=== PATIENT | female | born 1985 | race Caucasian/White ===

== ENCOUNTER 2016-08-15 09:37 | Emergency (ER) | payer SELFPAY ==
[~2016-08-15] VITALS: Ht 172.7 cm; Wt 54.3 kg
[2016-08-15 09:39] VITALS: Ht 172.7 cm; Wt 54.3 kg
--- OUTSIDE RECORDS SUMMARY | 2016-08-15 09:41 | XMS REPORT | Continuity of Care Document ---
Author Author [facility] Organization [facility] Address Unknown Phone Unavailable Allergies Medications Problems Procedures Results Encounters ACCT No. Visit Date/Time Discharge Status Pt. Type Provider Facility Loc./Unit Complaint [id number] 01/27/2012 09:11:00 2011 09:11:00 DIS Outpatient Carrol URIAS, Andrez Baker [facility]
--- OUTSIDE RECORDS SUMMARY | 2016-08-15 10:05 | XMS REPORT | Continuity of Care Document ---
Author Author [facility] Organization [facility] Address Unknown Phone Unavailable Allergies Medications Problems Procedures Results Encounters ACCT No. Visit Date/Time Discharge Status Pt. Type Provider Facility Loc./Unit Complaint [id number] 01/27/2012 09:11:00 2011 09:11:00 DIS Outpatient Carrol URIAS, Andrez Baker [facility]
[2016-08-15] MEDS ORDERED: MAGN30OR PO (10:07)
[2016-08-15] MEDS ORDERED: ACTI200C PO (10:08)
[2016-08-15] MEDS ORDERED: SALI45SP SSP (10:09)
--- NOTE | 2016-08-15 10:38 | ERPDOC ---
Departure Disposition Decision Date: Aug 15, 2016 Disposition Decision Time: 11:28 Disposition: 01 DISCHARGED HOME, SELF-CARE Impression Impression Impression: Primary Impression: GERD (gastroesophageal reflux disease) Esophagitis presence: esophagitis presence not specified Qualified Codes: K21.9 - Gastro-esophageal reflux disease without esophagitis Severity: Mild Condition: Improved Seen By: Physician only Referrals: [facility] 2 Days Patient Instructions: Peptic Ulcer (ED) Problems/Meds/Labs Reviewed?: Yes Medications reviewed and manag: Yes Follow up care ordered?: Yes Mental Status: Alert, Oriented Scripts Ondansetron (Zofran Odt) 4 Mg Tab.rapdis 4 MG PO Q4HR Y for NAUSEA &/OR VOMITING for 3 Days, #18 TAB 0 Refills Prov: CHARLIE WELLINGTON DO 08/15/16 Famotidine (Pepcid) 20 Mg Tablet 1 TAB PO BID for 10 Days, #20 TAB 0 Refills Prov: CHARLIE WELLINGTON DO 08/15/16 HPI - General Medical General Chief Complaint: Abdominal Pain Stated Complaint: ABD PAIN Time Seen by Provider: 09:50 Source: patient Exam Limitations: no limitations HPI - General Medical Initial Comments 30-year-old female presents to the emergency department with a chief complaint of abdominal discomfort. Patient's discomfort is located diffusely throughout the upper abdomen. She denies any trauma, travel, poorly prepared food, or recent antibiotic use. Patient states she has had chronic abdominal discomfort that has been similar in nature for several years. Patient states that the pain feels like it has exacerbated over the past week. She was at home when her symptoms began. Symptoms have been persistent in nature since onset. Patient does not note anything that makes her symptoms any better or any worse. She also notes a feeling like her pain is burning. Pain is moderate. No radiation. Patient also has a sour ball taste in her mouth like she is refluxing acid which she has done in the past. Occurred At: home Onset: Gradual Allergies: Coded Allergies: No Known Allergies (Unverified , 08/15/16) Past History Past Medical History Pt denies signifigant PMH Surgical History Denies Surgeries Family History Family History: Negative Social History Smoking Status: Current every day smoker Substance Use Type: does not use Alcohol Intake: former alcohol drinker Review of Systems Constitutional Constitutional: DENIES: chills, fever Eyes General: DENIES: erythema, exudate Lids/Accessories: DENIES: erythema, swelling Vision: DENIES: acuity, blurring ENMT Ears: DENIES: drainage, erythema, pain Hearing: DENIES: hearing loss Balance: DENIES: ataxia, falling to one side Sinuses: DENIES: congestion, pain Nose: DENIES: nosebleeds, pain Mouth/Throat: DENIES: painful swallowing, sore throat Teeth: DENIES: pain Jaw: DENIES: pain Cardiovascular Cardiac: DENIES: chest pain, dyspnea on exertion Rhythm/Rate: DENIES: irregular beat, palpitations Vascular: DENIES: pedal edema, unilateral swelling Pulmonary Respiratory: DENIES: cough, dyspnea, pleuritic chest pain, sputum GI Upper Abdomen: nausea, pain, vomiting Lower Abdomen: DENIES: diarrhea, pain General: DENIES: dysuria, frequency Musculoskeletal General: DENIES: pain, tenderness Integumentary Skin: DENIES: itching, rash Neurological General: DENIES: headache, numbness, weakness Psychiatric Psychiatric: DENIES: emotional instability, suicidal ideation/attempt Endocrine Endocrine: DENIES: polydipsia, polyphagia Hematologic/Lymphatic Hematologic/Lymphatic: DENIES: frequent nosebleeds, lymphadenopathy Allergic/Immunological Allergic/Immunoligical: DENIES: allergic reactions, hives Physical Exam General General Nourishment: well nourished, well developed, appears stated age, no acute distress, adult General Body Habitus: well groomed Vitals and Pain First Documented Vital Signs Date Time Temp Pulse Resp B/P Pulse Ox O2 Delivery O2 Flow Rate FiO2 08/15/16 09:39 98.8 95 16 139/85 100 Room Air Weight: Kilograms: 54.300 Height (feet): 5 Height (inches): 8.00 Triage Pain Scale: RN VS reviewed by Provider: Yes Normal Exams: Head: Normocephalic w/o trauma Eyes: Pupils are PERRLA w/ EOMI, No scleral icterus, irritation, or foreign bodies noted ENMT: No facial trauma, nasal exudates, pharyngeal erythema, or exudates are noted Dental: No fractured, loose, or missing teeth noted Neck: Full range of motion, without adenopathy, JVD, bruits or thyromegaly Chest/Resp: Clear all ruggiero, with good airflow, and symmetry bilaterally CV: Regular rate and rhythm, without murmur or gallop, Pulses 2+ all extremities, capillary refill, <2 seconds all ext., no pedal edema noted Abdomen: Bowel sounds positive, non-distended, no hepatosplenomegaly, masses or bruits noted Lymphatic: No lymphadenopathy, or lymphedema noted Musculoskeletal: No tenderness, or deformity noted, good range of motion, all extremities Integumentary: No rashes, hives, or bruising noted, hair and nails, without abnormality Neurologic: Patient is alert, and oriented, cranial nerves, motor/sensory/ cerebellar, exams w/o gross deficits, to observation Psychiatric: Patient exhibits, appropriate attention, emotion and affect Abdomen (brief) Abdominal Brief: FOUND: soft Comments Mild diffuse generalized upper abdominal tenderness to palpation. No rebound or guarding. No CVA tenderness. Differential Diagnoses Considering: Other (GERD/Abdominal Pain/Gastritis/PUD) Progress Results/Orders Orders Procedure Category Date Status Time Cbc W/Auto LAB 08/15/16 Complete Diff-Reflex Manual Cmp - Comprehensive LAB 08/15/16 Complete Metabolic Lipase LAB 08/15/16 Complete Ua, Dip Wreflex LAB 08/15/16 Complete Microsc & Account Clerk 10:08 LAB 08/15/16 Complete Qualitative, Urine 10:08 EKG EKG 08/15/16 Taken Normal Saline (Normal PHA 08/15/16 Complete Saline Iv) 10:45 Pantoprazole PHA 08/15/16 Complete (Protonix Iv) 10:45 Ct Abd/Pelvis W/O CT 08/15/16 Taken Contrast 10:52 G.I. Cocktail PHA 08/15/16 Complete (/Maalox/Lidocaine 11:30 Lab Results Laboratory Tests Test 08/15/16 10:26 08/15/16 10:36 Urine Collection Type Cleancatch-midstream Urine Color Yellow Urine Turbidity Clear Urine pH 7.5 Urine Specific [place] <=1.005 Urine Protein Negative Urine Glucose (UA) Negative Urine Ketones Negative Urine Blood Trace-intact Urine Nitrite Negative Urine Bilirubin Negative Urine Urobilinogen 0.2EU/DL Urine Leukocyte Esterase Negative Urinalysis Comment Microscopic not ind. Urine Test Negative White Blood Count 10.0T/MM3 Red Blood Count 4.11M/MM3 Hemoglobin 13.2GM/DL Hematocrit 39.3% Mean Corpuscular Volume 95.6UM3 Mean Corpuscular Hemoglobin 32.1UUG Mean Corpuscular Hemoglobin Concent 33.6GM/DL RDW Standard Deviation 42.9FL Platelet Count 240T/MM3 Mean Platelet Volume 11.9UM3 Immature Granulocyte % (Auto) 0.4% Neutrophils (%) (Auto) 60.9% Lymphocytes (%) (Auto) 29.1% Monocytes (%) (Auto) 6.0% Eosinophils (%) (Auto) 2.7% Basophils (%) (Auto) 0.9% Absolute Immature Granulocyte (auto 0.04T/MM3 Absolute Neutrophils (auto) 6.1T/MM3 Absolute Lymphocytes (auto) 2.9T/MM3 Absolute Monocytes (auto) 0.6T/MM3 Absolute Eosinophils (auto) 0.3T/MM3 Absolute Basophils (auto) 0.1T/MM3 Turbidity < 20 Sodium Level 145MEQ/L Potassium Level 4.6MEQ/L Chloride Level 105MEQ/L Carbon Dioxide Level 24MEQ/L Anion Gap 16MEQ/L Blood Urea Nitrogen 8.0MG/DL Creatinine 0.6MG/DL Glomerular Filtration Rate Calc 117 BUN/Creatinine Ratio 13RATIO Glucose Level 94MG/DL Calculated Osmolality 277MOSM/KG Calcium Level 10.5MG/DL Total Bilirubin 0.80MG/DL Icterus Index < 2 Aspartate Amino Transf (AST/SGOT) 20U/L Alanine Aminotransferase (ALT/SGPT) 21U/L Alkaline Phosphatase 59U/L Total Protein 8.2G/DL Albumin 4.8G/DL Globulin 3.4G/DL Albumin/Globulin Ratio 1.4RATIO Lipase 29U/L Chemistry Specimen Hemolysis 31 Medications Current ED Medications Sodium Chloride (Normal Saline IV) 1,000 ml @ 999 mls/hr Q1H1M ONCE IV Last administered on 08/15/16 11:16; Start 08/15/16 at 10:45; Stop 08/15/16 at 11:45; Status DC Pantoprazole Sodium (Protonix Iv) 40 mg O ONCE IV Last administered on 11:16; Start 08/15/16 at 10:45; Stop 08/15/16 at 10:46; Status DC Pharmacy Profile Note (/Maalox/ Lidocaine Soln) 30 ml O ONCE PO Last administered on 08/15/16 11:30; Start 08/15/16 at 11:30; Stop 08/15/16 at 11:31; Status DC Progress Progress Labs / imaging were discussed in detail with the patient and questions are answered. Patient is given IV hydration. She is given Protonix 40 mg IV times one. She is given a GI cocktail with improvement of symptoms. Patient is discharged home in improved condition. She is to follow up as instructed. Patient is return to the emergency Department if her condition worsens or changes in any manner. Prescription for Pepcid is provided. Patient is in agreement with the current plan of management. EKG EKG : Rate: 60-100 Rhythm: sinus Vance: normal QRS: normal Intervals: normal ST/T: normal Interpreted by: signing physician CT CT : CT: Abd/Pelvis no contrast Interpretation: Normal, Faxed Report CHARLIE WELLINGTON DO Aug 15, 2016 10:38
[2016-08-15 10:45] LABS: BASOPHILS # (AUTO) 0.1 T/MM3 (0-0.2); BASOPHILS % (AUTO) 0.9 % (0-2); EOSINOPHILS # (AUTO) 0.3 T/MM3 (0-0.5); EOSINOPHILS % (AUTO) 2.7 % (0-4); HCT - HEMATOCRIT 39.3 % (36-46); HGB - HEMOGLOBIN 13.2 GM/DL (12-16); IMMATURE GRANULOCYTE # (AUTO) 0.04 T/MM3 (0.00-0.03); IMMATURE GRANULOCYTE % (AUTO) 0.4 % (0.0-0.5); LYMPHOCYTES # (AUTO) 2.9 T/MM3 (1-4.8); LYMPHOCYTES % (AUTO) 29.1 % (23-45); MEAN CORPUSCULAR HGB 32.1 UUG (26-34); MEAN CORPUSCULAR HGB CONC(MCHC 33.6 GM/DL (31-37); MEAN CORPUSCULAR VOLUME 95.6 UM3 (80-100); MEAN PLATELET VOLUME 11.9 UM3 (9.4-12.4); MONOCYTES # (AUTO) 0.6 T/MM3 (0-0.8); NEUTROPHILS #(AUTO)-ABSOLUTE 6.1 T/MM3 (1.8-7.7); NEUTROPHILS % (AUTO) 60.9 % (33-66); RED BLOOD COUNT 4.11 M/MM3 (4.00-5.20)
[2016-08-15] MEDS ORDERED: PANTOPRAZOLE 40mg INJECTION IV ONE (10:45)
[2016-08-15] MEDS ORDERED: NORMAL SALINE 1,000 ML IV ONE (10:45)
[2016-08-15 10:52] LABS: BLOOD, URINE TRACE-INTACT (NEGATIVE); COLOR,URINE YELLOW (YELLOW); LEUKOCYTE ESTERASE ,URINE NEGATIVE (NEGATIVE); NITRITE,URINE NEGATIVE (NEGATIVE); UROBILINOGEN,URINE 0.2 EU/DL (NORMAL)
[2016-08-15 10:54] LABS: ALBUMIN 4.8 G/DL (3.5-5.0); ALBUMIN/GLOBULIN RATIO 1.4 RATIO (1.1-2.2); ALKALINE PHOSPHATASE 59 U/L (38-126); ALT (SGPT) 21 U/L (9-52); ANION GAP 16 MEQ/L (5-15); AST (SGOT) 20 U/L (14-36); BUN/CREATININE RATIO 13 RATIO (6-26); CALCIUM 10.5 MG/DL (8.4-10.2); CHLORIDE 105 MEQ/L (98-107); CO2 - CARBON DIOXIDE 24 MEQ/L (22-30); CREATININE 0.6 MG/DL (0.7-1.2); GLOMERULAR FILTRATION RATE 117; GLUCOSE 94 MG/DL (65-110); POTASSIUM 4.6 MEQ/L (3.6-5); SODIUM 145 MEQ/L (134-144); TOTAL PROTEIN 8.2 G/DL (6.3-8.2)
--- NOTE | 2016-08-15 11:10 | NUR ---
REPORT RECEIVED FROM WATSON VILLALPANDO. CARE ASSUMED.
--- NOTE | 2016-08-15 11:12 | NUR ---
RADIOLOGY PT RETURNED.
[2016-08-15 11:14] LABS: LIPASE 29 U/L (23-300)
[2016-08-15] MEDS ORDERED: G.I. COCKTAIL 30ml PO ONE (11:30)
[2016-08-15] MEDS ORDERED: ONDA4TAB7 PO (11:30)
[2016-08-15] MEDS ORDERED: FAMO-137 PO (11:30)
--- NOTE | 2016-08-15 11:30 | NUR ---
CARE RESUMED BY WATSON VILLALPANDO.
--- NOTE | 2016-08-15 11:50 | NUR ---
PROVIDER DR. WELLINGTON IN ROOM WITH PT.
[2016-08-15 12:00] VITALS: BP 137/82; PULSE 70; RESP 14; TEMP 97.6; O2SAT 99
--- NOTE | 2016-08-16 09:16 | DI ---
Indication: ITS.REASON: Increasing abdominal pain this week PROCEDURE: CT ABD/PELVIS W/O CONTRAST: Encounter: Initial Comparison: None Technique: Axial CT images were performed through the abdomen and pelvis without intravenous contrast. Coronal and sagittal two-dimensional reformats. Automated Exposure Control and Iterative Reconstruction dose reducing techniques were utilized. Findings: The lung bases are clear. The unenhanced contours of the liver, gallbladder, spleen, pancreas, adrenal glands and kidneys are within normal limits. Ureters cannot be followed due to the lack of intra-abdominal fat. Bladder appears grossly normal as does the uterus. No significant free pelvic fluid. No gross bowel obstruction or free air. Impression: No acute disease process seen. There is a preliminary report by [employer]. .
== END 2016-08-15 12:00 | disposition home or self-care (01) ==
LOC: ED 09:37
DX: K21.9 Gastro-esophageal reflux disease without esophagitis (principal)
CPT/HCPCS: 36416; 80053; 81003; 81025; 83690; 85025; 93005